=== PATIENT | female | born 1985 | race Hispanic/Latino ===

== ENCOUNTER 2018-01-25 04:59 | Inpatient (IN) | payer OTHER ==
--- NOTE | 2018-01-25 05:02 | PDOC.FPROB ---
FMR OB H&P: HPI - History of Present Illness Chief Complaint: Contractions Indentification: 32 year old G FMR OB H&P: Medications - Current Home Medications: Medication Instructions Recorded Confirmed Type Vit 10/Iron/Folic/Dha 1 tab PO DAILY 04/25/14 02/09/16 History [Vitafol-OB+DHA Combo Pack] Ibuprofen [Motrin] 800 mg PO Q8H PRN #0 tab 02/10/16 Rx Allergies/Adverse Reactions: Allergies Allergy/AdvReac Type Severity Reaction Status Date / Time No Known Allergies Allergy Verified 02/09/16 13:11 FMR OB H&P: A/P Discussion: Date/Time: 01/25/18 0502 This H&P was discussed with [] and [] who agree with the above documentation and plan.
[2018-01-25] MEDS ORDERED: Ondansetron HCl/PF 4 MG/2 ML Vial IVP PRN (05:18)
[2018-01-25] MEDS ORDERED: Ibuprofen 800 MG TAB PO PRN (05:18)
[2018-01-25] MEDS ORDERED: NS / Oxytocin 40 units/1000ml 1,000 ML IV PRN (05:18)
[2018-01-25] MEDS ORDERED: Promethazine HCl 25 MG/ML VIAL IM PRN (05:18)
[2018-01-25] MEDS ORDERED: Lidocaine 1% (PF) 30 ML VIAL SC PRN (05:18)
[2018-01-25] MEDS ORDERED: Docusate 100 MG CAP PO PRN (05:18)
[2018-01-25 05:34] VITALS: BMI 32.2
[2018-01-25] MEDS ORDERED: Misoprostol 200 MCG TAB ONE (05:37)
[2018-01-25] MEDS ORDERED: Carboprost 250 MCG/ML AMP ONE (05:38)
[2018-01-25] MEDS ORDERED: Methylergonovine 0.2 MG/ML VIAL ONE (05:38)
[2018-01-25] MEDS: Lactated Ringer's 1,000 ML IV SCH ×2 (05:46→06:38)
[2018-01-25 05:48] LABS: Hemoglobin 13.4 g/dL (12.0-16.0); Mean Corpuscular HGB CONC 33.8 g/dL (32.0-36.0); Mean Corpuscular Hemoglobin 30.8 pg (27.0-31.0); Mean Corpuscular Volume 90.9 fL (78.0-98.0); Mean Platelet Volume 8.3 fL (7.4-10.4); Platelet Count 188 thou/uL (130-400); RBC Distribution Width 11.8 % (11.5-14.5); Red Blood Cell (RBC) Count 4.35 mill/uL (4.20-5.40); White Blood Cell (WBC) Count 10.1 thou/uL (4.8-10.8)
[2018-01-25 06:20] LABS: Syphilis Antibody Nonreactive (Nonreactive); Syphilis Antibody Index 0.04 S/CO (<1.00 Non-Reactive)
[2018-01-25 06:30] LABS: HBSAg Index 0.17 S/CO (0-0.99); HIV (1/2) Antibody/Antigen Non-Reactive (NonReactive); HIV 1/2 INDEX 0.11 S/CO (<1.00); Hep B Surf Ag Non-Reactive S/CO (NonReactive)
[2018-01-25] MEDS: NS / Oxytocin 40 units/1000ml 1,000 ML IV SCH ×2 (07:40→08:40)
[2018-01-25] MEDS ORDERED: diphenhydrAMINE 25 MG CAP PO PRN (08:27)
[2018-01-25] MEDS ORDERED: Preparation H Ointment 28 GM TUBE PR PRN (08:27)
[2018-01-25] MEDS ORDERED: Adacel (T-DAP) 0.5 ML VIAL IM ONE (08:27)
[2018-01-25] MEDS ORDERED: Bisacodyl 10 MG SUPP PR PRN (08:27)
[2018-01-25] MEDS ORDERED: Milk Of Magnesia 30 ML UDCUP PO PRN (08:27)
[2018-01-25] MEDS: Ibuprofen 800 MG TAB PO SCH ×2 (10:05→21:27)
[2018-01-25] MEDS: Misoprostol 200 MCG TAB PR SCH ×2 (10:25→11:35)
[2018-01-25] MEDS: Prenatal Vitamin 1 TAB PO SCH (11:35)
[2018-01-25] MEDS: Docusate Calcium (SURFAK) 240 MG CAP PO SCH ×2 (11:35→21:27)
[2018-01-26] MEDS: Ibuprofen 800 MG TAB PO SCH ×3 (06:20→21:15)
[2018-01-26] MEDS: Docusate Calcium (SURFAK) 240 MG CAP PO SCH ×2 (09:40→21:14)
[2018-01-26] MEDS: Prenatal Vitamin 1 TAB PO SCH (09:40)
--- NOTE | 2018-01-26 13:33 | PDOC.PP ---
Post Progress Note Subjective: 32 yo [id number] PPD #1 s/p uncomplicated Lochia is mild. Ambulating without dizziness. +Spontaneous urination and flatus. Breast feeding going well. PO intake tolerated: yes Flatus: yes Ambulation: yes Vital Signs (12 hours) Temp Pulse Resp BP Pulse Ox 01/26/18 08:00 97.8 F 65 16 113/69 98 01/26/18 04:35 67 18 98/50 L 96 Weight Weight 85.275 kg - Physical Examination General: NAD Cardiovascular: no m/r/g, RRR Respiratory: clear to auscultation bilaterally, non-labored breathing Abdominal: + bowel sounds, lochia (Mild), no distention, appropriately TTP Fundus firm & at: 2cm below umbilicus Neurological: no gross focal deficits Psychiatric: A&Ox3, normal affect Result Diagrams: 01/25/18 05:37 Additional Labs: Post Labs Blood Type O POSITIVE 01/25/18 05:37 Hep Bs Antigen Non-Reactive S/CO (NonReactive) 01/25/18 05:37 (1) Normal spontaneous vaginal delivery Code(s): O80 - ENCOUNTER FOR FULL-TERM UNCOMPLICATED DELIVERY Status: Acute - Assessment/Plan Stable PPD #1 Meeting appropriate milestones. Continue routine care Anticipate d/c to home tomorrow.
[2018-01-27] MEDS: Ibuprofen 800 MG TAB PO SCH ×2 (04:57→14:56)
[2018-01-27 08:55] VITALS: BP 107/67; TEMP 98.1
[2018-01-27] MEDS: Docusate Calcium (SURFAK) 240 MG CAP PO SCH (09:18)
[2018-01-27] MEDS: Prenatal Vitamin 1 TAB PO SCH (09:18)
--- NOTE | 2018-01-27 14:47 | PDOC.PP ---
Post Progress Note Post Day #: 2 Subjective: 32 yo [id number] PPD #2 s/p uncomplicated Lochia is minimal. Ambulating without dizziness. +Spontaneous urination and flatus. Tolerating PO. No other complaints at this time PO intake tolerated: yes Flatus: yes Ambulation: yes Vital Signs (12 hours) Temp Pulse Resp BP Pulse Ox 01/27/18 07:55 98.1 F 62 16 107/67 98 01/27/18 07:50 98 Weight Weight 85.275 kg - Physical Examination General: NAD Cardiovascular: no m/r/g Respiratory: non-labored breathing Abdominal: lochia, no distention, appropriately TTP Fundus firm & at: 2 cm below umbilicus Neurological: no gross focal deficits Psychiatric: A&Ox3, normal affect Result Diagrams: 01/25/18 05:37 Additional Labs: Post Labs Blood Type O POSITIVE 01/25/18 05:37 Hep Bs Antigen Non-Reactive S/CO (NonReactive) 01/25/18 05:37 (1) Normal spontaneous vaginal delivery Code(s): O80 - ENCOUNTER FOR FULL-TERM UNCOMPLICATED DELIVERY Status: Acute - Assessment/Plan Stable PPD #2 meeting appropriate milestones D/C to home today Followup 2 weeks for check Routine PP counseling completed
== END 2018-01-27 16:55 | disposition home or self-care (01) | DRG 807 ==
LOC: L&D/OP 04:59 → L&D 08:26 → 3SW 10:36
PROVIDERS: ADMIT Family Medicine; ATTEND Family Medicine
PROC: 10E0XZZ Delivery of Products of Conception, External Approach (ICD-10-PCS; principal; 2018-01-25)
PROC: 4A0HXCZ Measurement of Products of Conception, Cardiac Rate, External Approach (ICD-10-PCS; 2018-01-25)
DX: O80 Encounter for full-term uncomplicated delivery (principal); Z37.0 Single live birth; Z3A.39 39 weeks gestation of pregnancy
CPT/HCPCS: 85027; 86780; 86850; 86900; 86901; 87340; 87389; 99285; J2001; J2210; J3490

== ENCOUNTER 2022-06-28 14:34 | Emergency (ER) | payer OTHER ==
[2022-06-28] MEDS ORDERED: Ampicillin 2 GM VIAL ONE (14:53)
[2022-06-28] MEDS ORDERED: Azithromycin 1,000 MG in Sodium Chloride 0.9% 500 ML IVPB SCH (15:00)
[2022-06-28] MEDS ORDERED: Betamet Acet/Betamet Na Ph 30 MG/5 ML VIAL IM SCH (15:00)
[2022-06-28] MEDS ORDERED: Magnesium 2 GM/50 ML BAG (IN WATER) ONE ×2 (15:10)
== END 2022-06-28 15:25 ==
LOC: ERS 14:34
DX: O42.912 Preterm premature rupture of membranes, unspecified as to length of time between rupture and onset of labor, second trimester (principal); Z3A.26 26 weeks gestation of pregnancy
CPT/HCPCS: 96374; 96375; J0290; J0456; J0702; J3475; J7030